=== PATIENT | male | born 1960 | race Caucasian/White ===

== ENCOUNTER → 2021-07-13 11:05 | Outpatient (BNVA) | payer MEDICAID, SELFPAY | PROVIDERS: Visit Provider Nurse Practitioner Family | DX: Z20.822 Contact with and (suspected) exposure to COVID-19 (principal) | CPT/HCPCS: 87426 ==

== ENCOUNTER → 2021-07-19 08:45 | Outpatient (BNVA) | payer MEDICAID, SELFPAY | PROVIDERS: Visit Provider Family Medicine | DX: I10 Essential (primary) hypertension (principal); Z87.19 Personal history of other diseases of the digestive system; E78.5 Hyperlipidemia, unspecified; N40.0 Benign prostatic hyperplasia without lower urinary tract symptoms; E78.00 Pure hypercholesterolemia, unspecified; Z76.89 Persons encountering health services in other specified circumstances; H40.9 Unspecified glaucoma; F41.1 Generalized anxiety disorder; G47.00 Insomnia, unspecified; F17.218 Nicotine dependence, cigarettes, with other nicotine-induced disorders | CPT/HCPCS: 80053; 80061; 84443; 85025; 87522 ==

== ENCOUNTER 2021-07-20 10:57 | Outpatient (CLI) | payer OTHER, SELFPAY ==
--- NOTE | 2021-07-20 11:15 | XR_ITS ---
WS: [id number] Left ankle, AP and lateral views, 07/20/2021 Clinical Data: PAIN IN L ANKLE W/ROM Comparison: None. Findings: No fractures or dislocations are seen. The ankle mortise is normal. The talus and calcaneus are unrem arkable. No soft tissue swelling over the medial or lateral malleolus is seen. There is a plantar spur. XR/XR ankle LT 2V [id number] Impression: Negative left ankle.
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
== END 2021-07-20 10:58 | disposition home or self-care (01) ==
LOC: RAD 11:03
PROVIDERS: PCP Family Medicine; Visit Provider Dermatology
DX: Z02.71 Encounter for disability determination (principal); M25.572 Pain in left ankle and joints of left foot; M25.552 Pain in left hip; M54.5 Low back pain
CPT/HCPCS: 72100; 73502; 73600

== ENCOUNTER → 2021-11-03 10:32 | Outpatient (BNVA) | payer MEDICAID, SELFPAY | PROVIDERS: PCP Family Medicine; Visit Provider Nurse Practitioner Family | DX: Z20.822 Contact with and (suspected) exposure to COVID-19 (principal); R68.89 Other general symptoms and signs | CPT/HCPCS: 87631; 87635 ==

== ENCOUNTER → 2022-02-14 08:49 | Outpatient (BNVA) | payer MEDICARE, MEDICAID, SELFPAY | PROVIDERS: PCP Family Medicine; Referring Provider Family Medicine; Visit Provider Podiatrist Foot & Ankle Surgery | DX: Q82.8 Other specified congenital malformations of skin (principal); M21.372 Foot drop, left foot; F17.210 Nicotine dependence, cigarettes, uncomplicated | CPT/HCPCS: 17110; 99203; 99204; 99213; 99214 ==

== ENCOUNTER 2022-03-15 06:11 | Day surgery (SDC) | payer MEDICARE, MEDICAID, SELFPAY ==
[2022-03-13 08:11] VITALS: BMI 29.4
[2022-03-15 06:31] VITALS: BP 137/80; PULSE 49; RESP 16; TEMP 36.6; O2SAT 96
[2022-03-15] MEDS: sodium chloride 0.9% 1,000 ML 30 ML IV (06:54)
--- NOTE | 2022-03-15 07:01 | P.HP_ITS ---
Same Day Surgery H&P Indication for Procedure/HPI DATE OF PROCEDURE: March 15, 2022 CHIEF COMPLAINT/INDICATIONFOR SURGICAL PROCEDURE: screening colonoscopy PREOP DIAGNOSIS: diagnostic PLANNED PROCEDURE: Operation Date: 03/15/22 07:30 Proposed Procedures p Colonoscopy 70003/z12.11(Not Applicable) - Barry Clements MD Medications/Allergies* Allergies/Adverse Reactions Allergy/AdvReac Type Severity Reaction Status Date / Time No Known Allergies Allergy Verified 03/15/22 06:29 Current Medications: Generic Name Dose Route Start Last Admin Trade Name Freq PRN Reason Stop Dose Admin Sodium Chloride 1,000 mls @ 30 mls/hr 03/15/22 06:30 03/15/22 06:54 Sodium Chloride 0.9% IV 03/16/22 06:29 30 mls/hr .Q24H LUZ Administration Pertinent History/Comorbid Conditions* Medical History (Updated 02/21/22 @ 07:43 by Tyree Washington DO) Essential hypertension High cholesterol Psychiatric care Social History Smoking and tobacco status: current every day smoker cigarettes Second hand smoke exposure: Yes Alcohol intake: former Pertinent Exam Findings alert, oriented x 3 and regular rate & rhythm Recommendations Surgery/Procedure today Coding Level of Care Code Acute Choral Director for William Monahan
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
[2022-03-15 08:03] VITALS: BP 88/48; PULSE 48; RESP 20; TEMP 36.1; O2SAT 95
[2022-03-15 08:14] VITALS: BP 111/70; PULSE 49; RESP 18; O2SAT 96
[2022-03-15 08:25] VITALS: BP 107/76; PULSE 51; RESP 18; O2SAT 98
--- NOTE | 2022-03-15 12:36 | ANE.PACU2 ---
Inpatient post-anesthesia follow up: Airway intact: Yes Vital signs: Temperature 97 F Pulse Rate 51 Respiratory Rate 18 Blood Pressure 107/76 Pulse Oximetry 98 Oxygen Delivery Me thod Room Air Oxygen Flow Rate 3 Fraction of Inspir ed Oxygen Hydration adequate: Yes Nausea and vomiting: No Pain level: 1 Mental status: Baseline
== END 2022-03-15 08:37 | disposition home or self-care (01) ==
PROVIDERS: PCP Family Medicine; Visit Provider Surgery
PROC: 0DJD8ZZ Inspection of Lower Intestinal Tract, Via Natural or Artificial Opening Endoscopic (ICD-10-PCS; CPT 45378; principal; 2022-03-15 07:30)
DX: Z12.11 Encounter for screening for malignant neoplasm of colon (principal); D12.2 Benign neoplasm of ascending colon; D12.5 Benign neoplasm of sigmoid colon; K57.30 Diverticulosis of large intestine without perforation or abscess without bleeding; F17.210 Nicotine dependence, cigarettes, uncomplicated; I10 Essential (primary) hypertension; J44.9 Chronic obstructive pulmonary disease, unspecified; G47.30 Sleep apnea, unspecified; Z86.19 Personal history of other infectious and parasitic diseases; E78.5 Hyperlipidemia, unspecified; F41.9 Anxiety disorder, unspecified; F32.9 Major depressive disorder, single episode, unspecified; Z79.82 Long term (current) use of aspirin
CPT/HCPCS: 45385; 88305; J2704; J7030

== ENCOUNTER → 2022-03-28 09:23 | Outpatient (BNVA) | payer MEDICARE, MEDICAID, SELFPAY | PROVIDERS: PCP Family Medicine; Visit Provider Surgery | DX: Z09 Encounter for follow-up examination after completed treatment for conditions other than malignant neoplasm (principal) | CPT/HCPCS: 99212 ==

== ENCOUNTER → 2022-04-25 09:04 | Outpatient (BNVA) | payer MEDICARE, MEDICAID, SELFPAY | PROVIDERS: PCP Family Medicine; Visit Provider Family Medicine | DX: F41.1 Generalized anxiety disorder (principal); G47.00 Insomnia, unspecified; N52.9 Male erectile dysfunction, unspecified; Z12.11 Encounter for screening for malignant neoplasm of colon; M21.372 Foot drop, left foot; B35.1 Tinea unguium; Z78.9 Other specified health status; R45.4 Irritability and anger; B99.9 Unspecified infectious disease; W57.XXXA Bitten or stung by nonvenomous insect and other nonvenomous arthropods, initial encounter; I10 Essential (primary) hypertension | CPT/HCPCS: 80053; 85025 ==

== ENCOUNTER → 2022-11-08 09:18 | Outpatient (BNVA) | payer MEDICARE, MEDICAID, OTHER, SELFPAY | PROVIDERS: PCP Family Medicine; Referring Provider Family Medicine; Visit Provider Orthopaedic Surgery | DX: M25.511 Pain in right shoulder (principal) | CPT/HCPCS: 73030; 99204 ==

== ENCOUNTER → 2023-04-20 08:51 | Outpatient (BNVA) | payer MEDICARE, MEDICAID, SELFPAY | PROVIDERS: PCP Family Medicine; Visit Provider Family Medicine | DX: Z12.5 Encounter for screening for malignant neoplasm of prostate (principal); F43.22 Adjustment disorder with anxiety; F41.1 Generalized anxiety disorder; I10 Essential (primary) hypertension; E83.52 Hypercalcemia | CPT/HCPCS: 80053; 80061; 82306; 85025; G0103 ==

== ENCOUNTER → 2024-08-05 13:00 | Outpatient (BNVA) | payer MEDICARE, MEDICAID, SELFPAY | PROVIDERS: PCP Family Medicine; Visit Provider Family Medicine | DX: I10 Essential (primary) hypertension (principal); E78.5 Hyperlipidemia, unspecified; N40.0 Benign prostatic hyperplasia without lower urinary tract symptoms; H40.9 Unspecified glaucoma; F43.22 Adjustment disorder with anxiety; F41.1 Generalized anxiety disorder; Z12.5 Encounter for screening for malignant neoplasm of prostate | CPT/HCPCS: 80053; 80061; 84443; G0103 ==

== ENCOUNTER → 2025-02-17 10:56 | Outpatient (BNVA) | payer MEDICARE, MEDICAID, SELFPAY | PROVIDERS: PCP Family Medicine; Visit Provider Family Medicine | DX: R73.03 Prediabetes (principal) | CPT/HCPCS: 80053; 83036; 85025 ==

== ENCOUNTER → 2025-08-25 11:50 | Outpatient (BNVA) | payer OTHER, MEDICAID, SELFPAY | PROVIDERS: PCP Family Medicine; Visit Provider Podiatrist Foot & Ankle Surgery | DX: M21.372 Foot drop, left foot (principal); Q82.8 Other specified congenital malformations of skin | CPT/HCPCS: 17110; 99204 ==

== ENCOUNTER → 2025-09-28 10:52 | Outpatient (BNVA) | payer MEDICARE, MEDICAID, SELFPAY | PROVIDERS: PCP Family Medicine; Visit Provider Podiatrist Foot & Ankle Surgery | DX: Q82.8 Other specified congenital malformations of skin (principal); M21.372 Foot drop, left foot | CPT/HCPCS: 17110 ==

== ENCOUNTER → 2025-10-26 10:04 | Outpatient (BNVA) | payer MEDICARE, MEDICAID, SELFPAY | PROVIDERS: PCP Family Medicine; Visit Provider Podiatrist Foot & Ankle Surgery | DX: M21.372 Foot drop, left foot (principal); Q82.8 Other specified congenital malformations of skin | CPT/HCPCS: 17110 ==